=== PATIENT | female | born 1980 | race African-American/Black ===

== ENCOUNTER 2016-12-22 17:36 | Emergency (ER) | payer OTHER | END 2016-12-22 19:56 | disposition home or self-care (01) | LOC: FER 17:36 | DX: J20.9 Acute bronchitis, unspecified (principal); J01.90 Acute sinusitis, unspecified; F17.210 Nicotine dependence, cigarettes, uncomplicated | CPT/HCPCS: 71020; 87804; 87899; 94640 ==

== ENCOUNTER 2016-12-28 10:26 | Emergency (ER) | payer OTHER | END 2016-12-28 11:19 | disposition home or self-care (01) | LOC: FER 10:26 | DX: J40 Bronchitis, not specified as acute or chronic (principal); F17.200 Nicotine dependence, unspecified, uncomplicated | CPT/HCPCS: 99283 ==

== ENCOUNTER 2021-10-11 17:21 | Emergency (ER) | payer OTHER ==
[~2021-10-11 17:21] MED LIST: BACLOFEN 10MG T10 MG PO; NAPROXEN500 MG PO; TESSALON PERLE100 M1 PO
[2021-10-12] MEDS ORDERED: SUDAFED30 MG PO (00:20)
[2021-10-12] MEDS ORDERED: CLARITIN10 MG PO (00:20)
== END 2021-10-12 00:35 | disposition home or self-care (01) ==
LOC: FER 17:21
DX: J06.9 Acute upper respiratory infection, unspecified (principal); J30.2 Other seasonal allergic rhinitis; F17.200 Nicotine dependence, unspecified, uncomplicated; Z20.822 Contact with and (suspected) exposure to COVID-19
CPT/HCPCS: 71046; 99283; U0002